=== PATIENT | male | born 1945 | race African-American/Black ===

== ENCOUNTER 2018-04-06 18:33 | Observation (INO) | payer OTHER ==
[2018-04-06 18:48] LABS: ADD MAN DIFF? NO
[2018-04-06 18:51] LABS: WHITE BLOOD COUNT 8.5 10^3/ul (4.8-10.8)
[2018-04-06 18:51] LABS: BASOPHILS % 0.2 % (0.0-2.0); EOSINOPHILS # 0.1 10^3/ul (0.0-0.5); EOSINOPHILS % 1.6 % (0.0-7.0); HEMATOCRIT 46.4 % (42.0-52.0); HEMOGLOBIN 15.2 g/dl (14.0-18.0); MEAN CORPUSCULAR HEMOGLOBIN 27.6 pg (29.0-33.0); MEAN CORPUSCULAR HGB CONC 32.8 g/dl (32.0-37.0); MEAN CORPUSCULAR VOLUME 84.4 fl (82.0-101.0); MEAN PLATELET VOLUME 9.2 fl (7.4-10.4); MONOCYTE # 0.8 10^3/ul (0.3-0.9); MONOCYTES % 9.5 % (0.0-11.0); NEUTROPHIL # 4.5 10^3/ul (1.6-7.5); NEUTROPHILS % 53.5 % (39.0-77.0); PLATELET COUNT 252 10^3/UL (140-415); RED CELL DISTRIBUTION WIDTH 14.4 % (11.5-14.5)
[2018-04-06] MEDS: SOD CHLORIDE 0.9% 1,000 ML IV (18:56)
[2018-04-06] MEDS: ONDANSETRON 4 MG INJ IV (18:56)
[2018-04-06] MEDS: morphine 4 MG/ML VIAL IV ×2 (18:57→21:21)
[2018-04-06 19:10] LABS: ANION GAP 12 (5-13); BLOOD UREA NITROGEN 17 mg/dl (7-20); CALCIUM 9.9 mg/dl (8.4-10.2); CARBON DIOXIDE 29 mmol/L (21-31); CHLORIDE 99 mmol/L (97-110); CREATININE 1.43 mg/dl (0.61-1.24); GLUCOSE 103 mg/dl (70-220); SODIUM 140 mmol/L (135-144)
[2018-04-06 19:11] LABS: INR 0.97
[2018-04-06 19:12] LABS: PARTIAL THROMBOPLASTIN TIME 28.1 Sec (23.0-35.0)
[2018-04-06 19:14] LABS: POTASSIUM 2.8 mmol/L (3.5-5.1)
[2018-04-06 19:22] LABS: TROPONIN-I < 0.012 ng/ml (0.000-0.120)
[2018-04-06] MEDS: IODIXANOL LOCM 100 ML BTL (19:57)
[2018-04-06] MEDS: SOD CHLORIDE 0.9% 100 ML (19:57)
[2018-04-06] MEDS: POTASSIUM CHLORIDE (SR) 20 MEQ TAB PO (20:02)
[2018-04-06] MEDS: ASPIRIN 81 MG TAB PO (21:13)
[2018-04-06] MEDS ORDERED: ONDANSETRON 4 MG INJ IV ×2 (21:30→23:30)
[2018-04-06] MEDS ORDERED: ACETAMINOPHEN 325 MG TAB PO ×2 (21:30→23:30)
[2018-04-06] MEDS: HYDROmorphONE 0.5 MG/0.5 ML SYG IV (21:34)
[2018-04-06] MEDS ORDERED: morphine SULFATE/PF (2 MG/2 ML) SYG IV (23:30)
[2018-04-06] MEDS ORDERED: MAGNESIUM HYDROXIDE 30ML CUP PO (23:30)
[2018-04-06] MEDS ORDERED: DOCUSATE SODIUM 100 MG CAP PO (23:30)
[2018-04-06] MEDS ORDERED: HYDROCODONE/APAP (5/325) TAB PO (23:30)
[2018-04-06] MEDS ORDERED: hydrALAzine 20 MG INJ IV (23:30)
[2018-04-06] MEDS ORDERED: ALBUTEROL/IPRATROPIUM (NEB) 3 ML AMP HHN (23:30)
[2018-04-06] MEDS ORDERED: NACL 0.9% 3 ML SYG IV (23:30)
[2018-04-06] MEDS ORDERED: NITROGLYCERIN (SL) 0.4 MG TAB SL (23:30)
[2018-04-06] MEDS ORDERED: LORAZEPAM 2 MG INJ IV (23:30)
[2018-04-06] MEDS: SOD CHLORIDE 0.45% 1,000 ML IV (23:44)
[2018-04-06 23:56] LABS: CREATINE KINASE 375 IU/L (23-200)
[2018-04-07 00:09] LABS: CK INDEX 0.4; CK-MB 1.33 ng/ml (0.0-2.4); TROPONIN-I < 0.012 ng/ml (0.000-0.120)
[2018-04-07 00:15] LABS: FREE T4 (FREE THYROXINE) 1.44 ng/dl (0.78-2.44)
[2018-04-07] MEDS ORDERED: TIZANIDINE 2 MG TAB PO (05:30)
[2018-04-07 06:07] LABS: ADD MAN DIFF? NO
[2018-04-07 06:11] LABS: BASOPHILS % 0.5 % (0.0-2.0); EOSINOPHILS # 0.3 10^3/ul (0.0-0.5); EOSINOPHILS % 5.1 % (0.0-7.0); HEMATOCRIT 42.1 % (42.0-52.0); HEMOGLOBIN 13.8 g/dl (14.0-18.0); LYMPHOCYTES # 2.3 10^3/ul (0.8-2.9); LYMPHOCYTES % 38.3 % (15.0-51.0); MEAN CORPUSCULAR HGB CONC 32.8 g/dl (32.0-37.0); MEAN CORPUSCULAR VOLUME 85.4 fl (82.0-101.0); MEAN PLATELET VOLUME 9.4 fl (7.4-10.4); MONOCYTE # 0.7 10^3/ul (0.3-0.9); MONOCYTES % 11.6 % (0.0-11.0); NEUTROPHIL # 2.6 10^3/ul (1.6-7.5); NEUTROPHILS % 44.2 % (39.0-77.0); PLATELET COUNT 210 10^3/UL (140-415); RED BLOOD COUNT 4.93 10^6/ul (4.70-6.10); RED CELL DISTRIBUTION WIDTH 14.7 % (11.5-14.5)
[2018-04-07 06:11] LABS: WHITE BLOOD COUNT 5.9 10^3/ul (4.8-10.8)
[2018-04-07 06:27] LABS: CREATINE KINASE 353 IU/L (23-200)
[2018-04-07 06:31] LABS: HEMOGLOBIN A1C 5.8 % (0-5.9)
[2018-04-07 06:38] LABS: CK INDEX 0.4; CK-MB 1.33 ng/ml (0.0-2.4); TROPONIN-I < 0.012 ng/ml (0.000-0.120)
[2018-04-07] MEDS: GABAPENTIN 300 MG CAP PO (08:43)
[2018-04-07 08:44] LABS: ANION GAP 4 (5-13); BLOOD UREA NITROGEN 18 mg/dl (7-20); CALCIUM 8.9 mg/dl (8.4-10.2); CARBON DIOXIDE 30 mmol/L (21-31); CHLORIDE 107 mmol/L (97-110); CHOLESTEROL 114 mg/dl (100-200); CREATININE 1.23 mg/dl (0.61-1.24); GLUCOSE 92 mg/dl (70-220); HDL CHOLESTEROL 38 mg/dl (31-75); LDL CHOLESTEROL,CALCULATED 54 mg/dl; PHOSPHORUS 3.5 mg/dl (2.5-4.9); POTASSIUM 3.6 mmol/L (3.5-5.1); SODIUM 141 mmol/L (135-144); TRIGLYCERIDES 108 mg/dl (0-149)
[2018-04-07] MEDS: ALLOPURINOL 100 MG TAB PO (08:44)
[2018-04-07] MEDS: ASPIRIN (EC) 325 MG TAB PO (08:44)
[2018-04-07] MEDS: METOPROLOL 25 MG TAB PO (08:45)
[2018-04-07] MEDS: LOSARTAN 25 MG TAB PO ×2 (08:46→10:39)
[2018-04-07] MEDS: AMLODIPINE 10 MG TAB PO (08:47)
[2018-04-07] MEDS: CHLORTHALIDONE 25 MG TAB PO (08:48)
[2018-04-07] MEDS: HEPARIN 5,000 UNIT/1 ML VIAL SC (09:05)
[2018-04-07 10:57] LABS: CREATINE KINASE 351 IU/L (23-200)
[2018-04-07 11:09] LABS: CK INDEX 0.4; CK-MB 1.56 ng/ml (0.0-2.4); TROPONIN-I < 0.012 ng/ml (0.000-0.120)
[2018-04-07] MEDS ORDERED: DONEPEZIL 10 MG TAB PO (21:00)
== END 2018-04-07 13:22 | disposition home or self-care (01) ==
LOC: 6WM 22:49 → E/R 18:33 → 6WM 21:05
DX: R07.9 Chest pain, unspecified (principal); I10 Essential (primary) hypertension; M10.9 Gout, unspecified; M54.9 Dorsalgia, unspecified; J98.11 Atelectasis; E07.9 Disorder of thyroid, unspecified; E87.6 Hypokalemia
CPT/HCPCS: 36415; 71045; 71275; 80048; 80061; 82550; 82553; 83036; 83735; 84100; 84439; 84443; 84484; 85025; 85610; 85730; 93005; 93306; 96372; 96374; 96375; 97161; 99285-25; G0378